=== PATIENT | male | born 1985 | race Caucasian/White ===

== ENCOUNTER 2023-09-25 04:05 | Day surgery (SDC) | payer OTHER ==
[2023-09-19 16:39] VITALS: BMI 49.3
[2023-09-25] MEDS ORDERED: LIDOCAINE HCL/PF 2% SDV 5ML VIAL ONE (13:15)
[2023-09-25] MEDS ORDERED: DEXAMETHASONE SOD PHOSPHATE 4 MG/1 ML VIAL ONE (13:15)
[2023-09-25] MEDS ORDERED: KETOROLAC TROMETHAMINE 30 MG/1 ML VIAL ONE (13:15)
[2023-09-25] MEDS ORDERED: ONDANSETRON 4 MG/2 ML VIAL ONE (13:15)
[2023-09-25] MEDS ORDERED: PROPOFOL 40 ML ONE (13:18)
[2023-09-25] MEDS ORDERED: MIDAZOLAM HCL 2 MG/2 ML SINGLE DOSE VIAL ONE (13:20)
[2023-09-25] MEDS ORDERED: CLINDAMYCIN 900 MG PREMIX BAG IVPB ONE (13:27)
[2023-09-25] MEDS ORDERED: ceFAZolin SODIUM 1 GM VIAL IVPB ONE (13:27)
[2023-09-25] MEDS ORDERED: CLINDAMYCIN 600MG PREMIX IVPB 1,200 MG/100 ML BAG IVPB ONE (13:28)
[2023-09-25] MEDS ORDERED: CLINDAMYCIN PHOSPHATE 600 MG/4 ML VIAL ONE (13:28)
[2023-09-25] MEDS ORDERED: ACETAMINOPHEN INJECTION 100 ML IVPB ONE (13:49)
[2023-09-25] MEDS ORDERED: LACTATED RINGERS SOLUTION 1,000 ML IV SCH (14:30)
[2023-09-25 14:56] VITALS: RESP 16; TEMP 98
[2023-09-25 15:30] VITALS: BP 128/78; PULSE 76
== END 2023-09-25 15:36 | disposition home or self-care (01) ==
LOC: JASU-SURG 04:05
PROVIDERS: ATTEND Urology
PROC: 0TC68ZZ Extirpation of Matter from Right Ureter, Via Natural or Artificial Opening Endoscopic (ICD-10-PCS; principal; 2023-09-25 13:00)
PROC: 0T768DZ Dilation of Right Ureter with Intraluminal Device, Via Natural or Artificial Opening Endoscopic (ICD-10-PCS; 2023-09-25 13:00)
PROC: BT1DYZZ Fluoroscopy of Right Kidney, Ureter and Bladder using Other Contrast (ICD-10-PCS; 2023-09-25 13:00)
DX: N20.1 Calculus of ureter (principal)
CPT/HCPCS: 76000-TC-FY; 94760; C1747; C1758; C1769; C2617